=== PATIENT | male | born 1985 | race Hispanic/Latino ===

== ENCOUNTER 2017-04-25 16:31 | Emergency (ER) | payer OTHER ==
[~2017-04-25] VITALS: Ht 172.7 cm; Wt 93.9 kg
[2017-04-25] MEDS ORDERED: ALEV220C2 PO (16:43)
[2017-04-25] MEDS ORDERED: ACETAMINOPHEN TAB 650MG DOSE (2X325MG) PO ONE (17:15)
[2017-04-25 18:15] LABS: BASO # 0.1 K/mm3 (0.0-0.2); BASO % 0.9 % (0.0-1.0); EOS # 0.2 K/mm3 (0.0-0.50); EOS % 1.7 % (0.0-3.0); LARGE UNSTAINED CELL # 0.2 K/mm3 (0.0-0.4); LARGE UNSTAINED CELL % 2.2 % (0.0-4.0); LYMPH # 2.9 K/mm3 (1.5-4.5); LYMPH % 33.7 % (24.0-44.0); MEAN CORPUSCULAR HGB CONC 34.5 g/dl (32.0-36.5); MEAN CORPUSCULAR VOLUME 89.9 fl (80.0-96.0); MONO # 0.4 K/mm3 (0.0-0.8); MONO % 4.8 % (0.0-5.0); NEUTROPHILS # 4.8 K/mm3 (1.8-7.7); NEUTROPHILS % 56.6 % (36.0-66.0); PLATELET COUNT, AUTOMATED 315 k/mm3 (150-450); RED CELL DISTRIBUTION WIDTH 12.7 % (11.5-14.5); WHITE BLOOD COUNT 8.5 K/mm3 (4.0-10.0)
--- NOTE | 2017-04-25 18:26 | REP ---
HISTORY: Chest pain. COMPARISON: None. FINDINGS: The superior mediastinal structures are midline. The cardiac silhouette is unremarkable in size, shape and position. The diaphragmatic surfaces of the lungs are regular and the costophrenic angles are clear. The pulmonary landa are clear. The imaged osseous structures are intact. IMPRESSION: There is no acute cardiopulmonary disease. Signed by Juliano Teague DO 04/25/2017 06:29 P
[2017-04-25 18:28] LABS: ANION GAP 6 MEQ/L (8-16); BLOOD UREA NITROGEN 13 MG/DL (7-18); CALCIUM LEVEL 9.5 MG/DL (8.5-10.1); CARBON DIOXIDE LEVEL 29 MEQ/L (21-32); CHLORIDE LEVEL 105 MEQ/L (98-107); CREATININE FOR GFR 0.95 MG/DL (0.70-1.30); GLOMERULAR FILTRATION RATE > 60.0 (>60); GLUCOSE, FASTING 95 MG/DL (70-105); POTASSIUM SERUM 4.2 MEQ/L (3.5-5.1); SODIUM LEVEL 140 MEQ/L (136-145)
--- NOTE | 2017-04-25 18:32 | ECGEPIP ---
Stationary ECG Study [facility] - ED Test Date: 2017-04-25 Pat Name: PAUL MEZA Department: Room: - Gender: M [employer]: SADIE : 1985 Requested By: JYOTSNA Taylor Order Number: [id number] Reading MD: Jessica Willingham Measurements Intervals [place] Rate: 77 P: 35 NC: 184 QRS: 19 QRSD: 80 T: 24 QT: 369 QTc: 418 Interpretive Statements SINUS RHYTHM NO PRIOR FOR COMPARISON Electronically Signed On 04-25-2017 18:32:14 EDT by Jessica Willingham
[2017-04-25 19:09] VITALS: BP 111/75
== END 2017-04-25 19:10 | disposition home or self-care (01) ==
LOC: M ED 16:31
DX: F41.9 Anxiety disorder, unspecified (principal); F32.9 Major depressive disorder, single episode, unspecified; M25.562 Pain in left knee; M54.2 Cervicalgia; Z79.1 Long term (current) use of non-steroidal anti-inflammatories (NSAID)

== ENCOUNTER → 2017-07-14 | Outpatient (CLI) | payer OTHER ==
[~2017-07-14] MED LIST: ALEV220C2 PO
--- NOTE | 2017-07-14 18:40 | REP ---
MR CERVICAL SPINE WITHOUT CONTRAST: HISTORY: Degenerative disc disease. A disc bulge is present at the C4-5 level there is mild effacement of the thecal sac without spinal cord compression. Bilateral uncinate process hypertrophy is present. This produces mildly minimal narrowing of the right and left C4 neural foramina respectively. A disc bulge and small left paracentral and intraforaminal disc protrusion with associated disc protrusion with associated osteophyte formation are present at the C5-6 level. There is minimal spinal cord compression. Bilateral uncinate process hypertrophy is present. This produces minimal and mild narrowing of the right and left neural foramina respectively. There is no other disc bulge or herniation. The remaining neural foramina are patent. Nerve root sleeve diverticula or perineural cysts are present at the C7-T1 level. The spinal cord is normal in signal intensity. Normal signal intensity is present in the cervical vertebral bodies. There is loss of the normal lordotic curve. IMPRESSION:There is cervical spondylosis at the C4-5 and C5-6 levels, most significant at the C5-6 level. Where there is minimal spinal cord compression. Signed by George Frost MD 07/14/2017 06:43 P
== END ==
LOC: M PLARAD 15:07
PROVIDERS: ATTEND Nurse Practitioner Family
DX: M54.2 Cervicalgia (principal)

== ENCOUNTER 2017-09-13 12:27 | Emergency (ER) | payer OTHER ==
[~2017-09-13] VITALS: Ht 172.7 cm; Wt 90.9 kg
[2017-09-13 12:27] VITALS: BP 142/83
[2017-09-13] MEDS ORDERED: AMIT25TA (12:56)
[2017-09-13] MEDS ORDERED: DICL1GEL3 (12:56)
[2017-09-13] MEDS ORDERED: FLUTISP (12:56)
[2017-09-13] MEDS ORDERED: ALLE60TA69 PO (12:56)
[2017-09-13] MEDS ORDERED: CLAR10CA3 PO (12:56)
[2017-09-13] MEDS ORDERED: CYCL10TA PO (15:13)
[2017-09-13] MEDS ORDERED: KETO10TAB PO (15:13)
[2017-09-13] MEDS ORDERED: KETOROLAC 60 MG/2 ML VIAL (J1885) IM ONE (15:15)
== END 2017-09-13 15:49 | disposition home or self-care (01) ==
LOC: M ED 12:27
DX: S16.1XXA Strain of muscle, fascia and tendon at neck level, initial encounter (principal); X50.9XXA Other and unspecified overexertion or strenuous movements or postures, initial encounter; Y92.139 Unspecified place military base as the place of occurrence of the external cause; Y93.89 Activity, other specified; Y99.1 Military activity; J30.2 Other seasonal allergic rhinitis; F41.9 Anxiety disorder, unspecified; F33.9 Major depressive disorder, recurrent, unspecified; Z79.899 Other long term (current) drug therapy
CPT/HCPCS: 96372; 99282; J1885

== ENCOUNTER 2017-10-10 17:46 | Emergency (ER) | payer OTHER ==
[2017-10-10] MEDS: NORCO, ANEXSIA 5/325MG TABLET (HYDROcodone/ACETAMINOPHEN) PO (21:44)
== END 2017-10-10 22:17 | disposition home or self-care (01) ==
LOC: M ED 17:46
DX: Z04.1 Encounter for examination and observation following transport accident (principal); S60.222A Contusion of left hand, initial encounter; W22.11XA Striking against or struck by driver side automobile airbag, initial encounter; V43.52XA Car driver injured in collision with other type car in traffic accident, initial encounter; Y92.410 Unspecified street and highway as the place of occurrence of the external cause; Y93.89 Activity, other specified; F17.210 Nicotine dependence, cigarettes, uncomplicated; Z86.59 Personal history of other mental and behavioral disorders
CPT/HCPCS: 73130